=== PATIENT | male | born 1990 | race Caucasian/White ===

== ENCOUNTER → 2017-02-16 | Outpatient (CLI) | payer OTHER | LOC: BRMIMAGING 13:53 | PROVIDERS: ATTEND Physician Assistant | DX: R14.0 Abdominal distension (gaseous) (principal) | CPT/HCPCS: 76705-PO ==

== ENCOUNTER → 2017-02-27 | Outpatient (CLI) | payer OTHER ==
[~2017-02-27] MED LIST: IOPAMIDOL (ISOVUE-300) 100 ML BTL ONE
== END ==
LOC: FIMAGING 09:11
PROVIDERS: ATTEND Radiology Diagnostic Radiology
DX: R59.9 Enlarged lymph nodes, unspecified (principal); R16.1 Splenomegaly, not elsewhere classified
CPT/HCPCS: Q9967